=== PATIENT | male | born 1960 | race Asian ===

== ENCOUNTER 2019-06-18 12:05 | Emergency (ER) | payer OTHER ==
[~2019-06-18] VITALS: Ht 167.6 cm; Wt 70.8 kg
[2019-06-18 12:06] VITALS: BP 119/74
--- NOTE | 2019-06-18 12:15 | NUR ---
PT AMBULATED TO BED 11
--- NOTE | 2019-06-18 12:17 | NUR ---
Dr. Hackett evaluating patient at bedside.
[2019-06-18] MEDS ORDERED: KETOROLAC 60 MG/2 ML VIAL IM ONE (12:20)
--- NOTE | 2019-06-18 12:25 | NUR ---
PATIENT PRESENTS TO ED WITH C/O RT BUTTOCK PAIN TRAVELLING DOWN TO RT THIGH X 3 WKS. PT DENIES INJURY. PT REPORTS PAIN 8/10 THAT IS SHARP AND CONSTANT.PT REPORTS PAIN WORSENS WITH AMBULATION AND IS ALLIEVATED WITH REST. PT REPORTS TAKING NO MEDICATION FOR PAIN AT HOME. DENIES N/V/D; SKIN IS PINK/WARM/DRY; AAOX4 WITH EVEN AND STEADY GAIT; LUNGS CLEAR BL; HR EVEN AND REGULAR; PT DENIES ANY FEVER, CP, SOB, OR COUGH AT THIS TIME; VSS; PATIENT POSITIONED FOR COMFORT; HOB ELEVATED; BEDRAILS UP X2; BED DOWN. SINAN- [facility]ELSE[facility] EATON
[2019-06-18 12:44] VITALS: BP 119/74
== END 2019-06-18 12:43 | disposition home or self-care (01) ==
LOC: MED 12:05
DX: M54.5 Low back pain (principal); E11.9 Type 2 diabetes mellitus without complications
CPT/HCPCS: 96372; 99283; J1885

== ENCOUNTER 2020-01-14 11:26 | Emergency (ER) | payer OTHER ==
[~2020-01-14] VITALS: Ht 163.8 cm; Wt 65.8 kg
[2020-01-14 11:28] VITALS: BP 121/73
[2020-01-14 13:15] VITALS: BP 121/73
== END 2020-01-14 13:15 | disposition home or self-care (01) ==
LOC: MED 11:26
DX: M19.011 Primary osteoarthritis, right shoulder (principal); E11.9 Type 2 diabetes mellitus without complications; I10 Essential (primary) hypertension; E78.00 Pure hypercholesterolemia, unspecified
CPT/HCPCS: 73030; 99283; Q0092